=== PATIENT | female | born 1960 | race Caucasian/White ===

== ENCOUNTER 2022-04-06 16:36 | Outpatient (CLI) | payer OTHER, SELFPAY ==
[2022-04-06 11:37] LABS: Hemoglobin A1C 5.1 % (<5.7)
[2022-04-06 12:20] LABS: Glucose 102 mg/dL (74-106)
== END 2022-04-06 16:37 | disposition home or self-care (01) ==
LOC: LBO 16:40
PROVIDERS: PCP Internal Medicine; Visit Provider Optometrist
DX: E11.9 Type 2 diabetes mellitus without complications (principal)
CPT/HCPCS: 36415; 82947; 83036

== ENCOUNTER 2022-12-13 08:48 | Day surgery (SDC) | payer OTHER, SELFPAY ==
[2022-12-13 08:50] VITALS: BP 138/90; PULSE 86; RESP 16; TEMP 35.9; O2SAT 96
--- NOTE | 2022-12-13 09:13 | W.ANESPRE ---
General Info Date of Service Date Performed: 12/13/22 Height: 5 ft 7 in Weight: 91.8 kg Body Mass Index (BMI): 31.6 Surgical Procedure: Operation Date: 12/13/22 11:40 Proposed Procedure Side Surgeon p Cataract Extraction with IOL Implant Left jT Reynolds MD laterality changed after discussion with surgeon, all paperwork and patient agree to left eye Meds Allergies and Home Medications Allergies Allergy/AdvReac Type Severity Reaction Status Date / Time lisinopril Allergy Severe Angioedema Unverified 12/13/22 09:05 amoxicillin [Amoxicillin] Allergy Mild Hives Unverified 12/13/22 09:05 Sulfa (Sulfonamide Allergy Mild Skin Rash Unverified 12/13/22 09:05 Antibiotics) Home Medication Medication Instructions Recorded cyanocobalamin (vitamin B-12) 1,000 mcg IM .MONTHLY 12/03/13 1,000 mcg/mL oral drops (Vitamin B-12) metoprolol tartrate 100 mg tablet 150 mg PO TID 12/03/13 venlafaxine 75 mg tablet 75 mg PO BID 12/03/13 albuterol sulfate 90 mcg/actuation 2 puff inhalation QID PRN 12/09/22 aerosol inhaler (Ventolin HFA) amlodipine 5 mg tablet 5 mg PO DIRECTED 12/09/22 apixaban 5 mg tablet (Eliquis) 5 mg PO BID 12/09/22 fluticasone propionate 110 2 puff inhalation BID 12/09/22 mcg/actuation HFA aerosol inhaler (Flovent HFA) losartan 100 mg tablet 100 mg PO QAM 12/09/22 losartan 50 mg tablet 50 mg PO HS 12/09/22 omeprazole 40 mg capsule,delayed 40 mg PO BID 12/09/22 release potassium chloride 10 mEq 10 meq PO BID 12/09/22 capsule,extended release budesonide-formoterol HFA 160 2 puff inhalation BID 12/10/22 mcg-4.5 mcg/actuation aerosol inhaler (Symbicort) Current Visit Medications: Current Medications Generic Name Dose Route Start Last Admin Trade Name Freq PRN Reason Stop Dose Admin Acetaminophen 1,000 mg 12/13/22 06:00 Acetaminophen 500 Mg Tab PO Q4H PRN PRN Miscellaneous Medication 0 ml 12/13/22 06:00 Tropicam./Phenyleph. (1/2.5%) 10 Ml Btl OD DIRECTED [facility] Miscellaneous Medication 0 ml 12/13/22 06:00 Prednisolone 1%, Moxifloxacin 0.5%, Nepafenac 0.1% 5ml Btl OD DIRECTED [facility] Tetracaine HCl 0 ml 12/13/22 06:00 Tetracaine 0.5% 4 Ml Btl OD DIRECTED [facility] PFSH Active Problems Active Problems: Problem Status Onset Code Generalized abdominal discomfort 12/03/13 R10.84 Nausea and vomiting 12/03/13 R11.2 History of DVT (deep vein thrombosis) Z86.718 Hypertension I10 Depression F32.9 Small bowel obstruction 12/13/13 K56.69 Medical History Medical History Cardiac pacemaker in situ Chest pain neg stress echo04/2011 Endometriosis History of cardioversion F/U with cards annually ILD (interstitial lung disease) Mild intermittent asthma Ocular migraine MONIKA (obstructive sleep apnea) Parastomal hernia Pulmonary embolism x3 on continuous anticoagulation Tachy-kade syndrome Unspecified atrial fibrillation During D&C developed brief run of a-fib, tolerated general anesthesia well. Surgical History Surgical History H/O cardiac radiofrequency ablation History of hernia repair parastomal hernia S/P colectomy Status post ileostomy Tobacco Smoking/Tobacco Use Status: Never Alcohol Alcohol Intake: never Substance Use Substance use: Never Substance use type: does not use Vital Signs and Lab Results Vital Signs Most Recent Vital Signs in EMR: Temp Pulse Resp BP Pulse Ox 35.9 C L 86 16 138/90 96 12/13/22 08:50 12/13/22 08:50 12/13/22 08:50 12/13/22 08:50 12/13/22 08:50 Lab Results Blood Type / Crossmatch: No Data to Display Complete Blood Count: No Data to Display Complete Metabolic Panel: No Data to Display Liver Function Panel: No Data to Display Coagulation Panel: No Data to Display Cardiac Panel: No Data to Display Arterial Blood Gas: No Data to Display Venous Blood Gas: No Data to Display Pancreas Panel: No Data to Display Thyroid Panel: No Data to Display Infectious Disease: No Data to Display Blood Cultures: No Data to Display Toxicology Panel: No Data to Display Imaging and Studies Imaging and Studies Study information below may be from another EMR and interpreted by another provider. Please see original notes in EMR for more complete details. [place] [facility] [place] [facility] [place] Summary: [place]19[place]21 [place] [facility] [place] [facility] [place] 68% no significant valve disease Anesthesia Assessment and Plan Anesthesia History Personal History: No History of Anesthesia Complications Family History: No Family History of Anesthesia Complications Exercise Tolerance Exercise Tolerance: Metabolic Equivalents<4 Pertinent Negatives Pertinent Negatives: No Symptoms of GERD, No Major Cardiovascular Symptoms or Complaints and Other (chronic SOB being worked up, stress test and echo negative) Cardiac & Pulmonary Exam Cardiac Exam: Normal S1/S2 Heart Sounds Pulmonary Exam: Clear Bilateral Breath Sounds Implantable Cardiac Device Does patient have a Pacemaker or an ICD?: Yes Device 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[employer] Accolade MRI L311 Reason for Placement:: Afib & Tachy-kade syndrome Date of Last Device Interrogation:: 11/16/22 Airway Exam Known Difficult Airway: No Mallampati Class: 4 Mouth Opening: Normal (> 3cm) Thyromental Distance: Less than 3 cm Neck Range of Motion: Full ROM Neck Circumference: Thick Teeth Condition: Normal Dentition ASA Classification ASA Score: ASA 3 Emergency Case?: No NPO Status NPO Status: NPO Clears >2 hours, Solids >8 hours Anesthesia Plan Resuscitation Status: Full Code Anesthesia Technique: MAC Anesthesia Airway Planned: Natural Airway Monitors Used: Standard Monitors
[2022-12-13 09:25] VITALS: BMI 31.6
[2022-12-13] MEDS: Tetracaine 0.5% 4 ML BTL OD (10:22)
[2022-12-13] MEDS: Duovisc Viscoelastic System EACH 1 EACH (10:23)
[2022-12-13] MEDS: Lidocaine 1% Pres-Free 5 ML VIAL (10:23)
[2022-12-13] MEDS: Balanced Salt Soln.-PLUS 500 ML BAG (10:23)
[2022-12-13] MEDS: Phenylephrine/Lidocaine (15/10) MG/ML 1 ML VIAL (10:24)
[2022-12-13] MEDS: Trypan Blue 0.06% 0.5 ML SYR (10:25)
[2022-12-13] MEDS: Povidone-Iodine Ophth 30 ML BTL (10:25)
--- NOTE | 2022-12-13 10:49 | W.PM.DSUDISC ---
Date of service: 12/13/22 Time of Service: 10:49 Discharge Plan Disposition Patient Disposition: Home Discharge Details Attending Provider: Tj Reynolds Primary Care Provider: Amairani Dozier Home Meds and New Rx's Prescriptions: No Action venlafaxine 75 MG tablet 75 mg PO BID metoprolol tartrate 100 MG tablet 150 mg PO TID Vitamin B-12 1,000 MCG/ML drops 1,000 mcg IM .MONTHLY losartan 50 mg Tablet 50 mg PO HS potassium chloride 10 mEq Capsule, Extended Release 10 meq PO BID amlodipine 5 mg tablet 5 mg PO DIRECTED omeprazole 40 mg Capsule,Delayed Release(Dr/Ec) 40 mg PO BID albuterol sulfate [Ventolin HFA] 90 mcg/actuation Hfa Aerosol Inhaler 2 puff INHALATION QID PRN losartan 100 mg tablet 100 mg PO QAM fluticasone propionate [Flovent HFA] 110 mcg/actuation Hfa Aerosol Inhaler 2 puff INHALATION BID Eliquis 5 mg Tablet 5 mg PO BID budesonide-formoterol [Symbicort] 160-4.5 mcg/actuation Hfa Aerosol Inhaler 2 puff INHALATION BID Discharge Instructions Stand Alone Forms: Post-op Topical Cataract, Martha Villarreal ([facility]U) Discharge Orders Discharge Orders: Discharge Order (Routine); Ordered 12/13/22 Ordered By: Tj Reynolds DS: Diagnosis Discharge Diagnosis (1) Posterior subcapsular age-related cataract of left eye: Status: Resolved (2) Nuclear age-related cataract, left eye: Status: Resolved
[2022-12-13 10:50] VITALS: BP 113/74; PULSE 61; RESP 16; TEMP 36.1; O2SAT 98
--- NOTE | 2022-12-13 10:50 | W.PM.OP ---
Date of service: 12/13/22 Time of Service: 10:50 Operative Note Operative Note DATE OF PROCEDURE: 12/13/22 PRE-OP DIAGNOSIS: Nuclear/posterior subcapsular cataract, left eye POST-OP DIAGNOSIS: same PROCEDURE: Cataract extraction using phacoemulsification with intraocular lens implant, left eye SURGEON: Tj Reynolds ANESTHESIA TYPE: Local By Surgeon and MAC Refer to Anesthesia Record PATHOLOGY: none sent COMPLICATIONS: None Patient was transported to: same day Patient's condition: stable Implants: Kvng and Kvng Tecnis Eyhance [id number] Indications: Progressive decreased vision due to cataract, left eye Procedure Description: CATARACT SURGERY OPERATIVE REPORT PREOPERATIVE DIAGNOSIS: 1. Nuclear/posterior subcapsular cataract, left eye POSTOPERATIVE DIAGNOSIS: Same OPERATION: 1. Cataract extraction using phacoemulsification with posterior chamber intraocular lens implant, left eye. IOL: IOL Geodetic Surveyor Technologist/Model: Kvng & Kvng Tecnis Eyhance DIB00 IOL Power: + 22.0 diopters IOL Serial Number: [id number] Optic Diameter: 6.0 mm Haptic/Overall Diameter: 13.0 mm PHACO INFO: Buck [employer] (L[employer]urion Vision System with OZil and Active Fluidics Cumulative Dispersed Energy (CDE): 4.11 seconds SURGEON: Tj Reynolds MD, LYLE ANESTHESIA: Monitored [facility] (MAC), with local sub-tenon's anesthetic infiltration COMPLICATIONS: None SPECIMENS: None INDICATIONS FOR PROCEDURE: The patient is a 62-year-old lady with history of diminished visual acuity in both eyes secondary to the development of bilateral nuclear/posterior subcapsular cataract. She is significantly symptomatic that she desires cataract surgery and attempt to improve and maximize her vision. PROCEDURE: The correct surgical eye was identified and marked as the left eye and the pupil was dilated in the preoperative area using mydriatics and cycloplegics. The dilated pupil size was 5.0 mm. Oral sedation was administered in the form of an Imprimis MKO Melt (midazolam 3mg/ketamine 25mg/ondansetron 2mg). . The patient was brought to the operating room where cardiopulmonary monitoring was instituted and surgical time-out was performed, confirming the correct operative eye and IOL power. Topical anesthesia was administered and ophthalmic povidone-iodine 5% was instilled into the conjunctival fornices. Lidocaine gel was applied to the cornea and the dalton-ocular area was prepped with Betadine 10% solution and draped in the usual sterile fashion for intraocular surgery, including an aperture drape. A Tegaderm transparent film dressing was cut in half and used to cover the lashes and lid margins. Care was taken to sequester the lashes and lid margins under the Tegaderm dressing. A lid speculum was placed between the lids of the operative eye and the Buck LuxOR Revalia operating microscope was maneuvered into position. Jose scissors were then used to make a conjunctival buttonhole approximately 6mm posterior to the limbus in the inferonasal quadrant. Blunt dissection was carried out to expose bare sclera, and a blunt-tipped sub-tenon?s anesthesia cannula was introduced and passed posteriorly along the globe where non-preserved plain lidocaine was injected into posterior sub-Tenon?s space. A sideport knife was used to make a paracentesis port superiorly/superiortemporally. Intraocular phenylephrine/lidocaine was injected int the anterior chamber. VisionBlue was injected into the anterior chamber and allowed to sit for 12 to 15 seconds, and then irrigated out with balanced salt solution. The anterior chamber was filled with viscoelastic. Viscoat was used to provide a little extra Visco dilation, to approximately 5.5 mm A keratome knife was used to construct a 2-plane near-clear corneal tunnel extending 2.0mm into clear cornea temporally. A flap was raised on the anterior capsule and capsulorhexis forceps were used to complete a continuous curvilinear capsulorhexis of 5.0 mm. Balanced salt solution was then used to perform cortical cleaving hydrodissection and nuclear hydrodelineation until the lens could be freely rotated within the capsular bag. The lens nucleus was then disassembled and removed within the capsular bag and iris plane using phacoemulsification. Residual cortical material was removed using the 45-degree angled silicone I/A tip with 0.3mm port. The posterior capsule was carefully polished to remove as much residual lens epithelial cells as safely possible. The capsular bag was then inflated and the anterior chamber deepened with viscoelastic. The lens implant described above was inserted into the capsular bag using the Kvng and Kvng Simplicity pre-loaded injector. . A Kuglen hook was used to dial the IOL into position. Residual viscoelastic was then removed first from posterior to the IOL, then from the anterior chamber using the I/A handpiece. The lens implant was noted to center nicely within the capsular bag. The incisions were stromally hydrated, and the anterior chamber was reformed using BSS. Then 0.5cc of moxifloxacin 1.0mg/ml were injected into the capsular bag and anterior chamber. The incisions were checked with a Weck spear and found to be secure. Several drops of ophthalmic povidone-iodine 5% were then applied to the eye followed by two drops of Imprimis combination prednisolone/moxifloxacin/nepafenac solution. The drapes were removed and a clear plastic protective eye shield was placed over the eye. The patient was then returned to Same Day Surgery in stable condition.
--- NOTE | 2022-12-13 11:02 | W.ANESPOSTOP ---
Postoperative Evaluation Date, Time and Location Date Performed: 12/13/22 Time Performed: 10:55 Patient Location: Day Surgery Unit Vital Signs Most Recent Imported Vital Signs: Most Recent Vital Signs Temp Pulse Resp BP Pulse Ox 36.1 C L 61 16 113/74 98 12/13/22 10:50 12/13/22 10:50 12/13/22 10:50 12/13/22 10:50 12/13/22 10:50 Pain Score Most Recent Pain Score: Most Recent Pain Score Pain Level 0 12/13/22 10:50 Assessment Mental Status: Awake (Alert & Oriented to Patient Baseline) Airway and Respiratory Function: Patent airway with normal (patient baseline) respiratory exam Cardiovascular Function: Hemodynamically Stable Hydration Status: Adequately Hydrated Nausea & Vomiting: No Nausea or Vomiting Pain: Pt. Denies Any Pain Peripheral Nerve Block: Patient did not receive a nerve block
[2022-12-13 11:18] VITALS: BP 114/79; PULSE 65; RESP 16; TEMP 36.5; O2SAT 96
== END 2022-12-13 11:24 | disposition home or self-care (01) ==
PROVIDERS: PCP Internal Medicine; Visit Provider Ophthalmology
PROC: (CPT 66984; principal; 2022-12-13 11:30)
DX: H25.042 Posterior subcapsular polar age-related cataract, left eye (principal); H25.12 Age-related nuclear cataract, left eye
CPT/HCPCS: 66984; V2632

== ENCOUNTER 2022-12-27 08:12 | Day surgery (SDC) | payer OTHER, SELFPAY ==
--- NOTE | 2022-12-27 06:42 | W.ANESPRE ---
General Info Date of Service Date Performed: 12/27/22 Height: 5 ft 7 in Weight: 91.8 kg Body Mass Index (BMI): 31.6 Surgical Procedure: Operation Date: 12/27/22 10:40 Proposed Procedure Side Surgeon p Cataract Extraction with IOL Implant Right Tj Reynolds MD Meds Allergies and Home Medications Allergies Allergy/AdvReac Type Severity Reaction Status Date / Time lisinopril Allergy Severe Angioedema Unverified 12/27/22 08:42 amoxicillin [Amoxicillin] Allergy Mild Hives Unverified 12/27/22 08:42 Sulfa (Sulfonamide Allergy Mild Skin Rash Unverified 12/27/22 08:42 Antibiotics) Home Medication Medication Instructions Recorded cyanocobalamin (vitamin B-12) 1,000 mcg IM .MONTHLY 12/03/13 1,000 mcg/mL oral drops (Vitamin B-12) metoprolol tartrate 100 mg tablet 150 mg PO TID 12/03/13 venlafaxine 75 mg tablet 75 mg PO BID 12/03/13 albuterol sulfate 90 mcg/actuation 2 puff inhalation QID PRN 12/09/22 aerosol inhaler (Ventolin HFA) amlodipine 5 mg tablet 5 mg PO DIRECTED 12/09/22 apixaban 5 mg tablet (Eliquis) 5 mg PO BID 12/09/22 fluticasone propionate 110 2 puff inhalation BID 12/09/22 mcg/actuation HFA aerosol inhaler (Flovent HFA) losartan 100 mg tablet 100 mg PO QAM 12/09/22 losartan 50 mg tablet 50 mg PO HS 12/09/22 omeprazole 40 mg capsule,delayed 40 mg PO BID 12/09/22 release potassium chloride 10 mEq 10 meq PO BID 12/09/22 capsule,extended release budesonide-formoterol HFA 160 2 puff inhalation BID 12/10/22 mcg-4.5 mcg/actuation aerosol inhaler (Symbicort) Current Visit Medications: Current Medications Generic Name Dose Route Start Last Admin Trade Name Freq PRN Reason Stop Dose Admin Acetaminophen 1,000 mg 12/27/22 06:00 Acetaminophen 500 Mg Tab PO Q4H PRN PRN Miscellaneous Medication 0 ml 12/27/22 06:00 Tropicam./Phenyleph. (1/2.5%) 5 Ml Btl OD DIRECTED [facility] Miscellaneous Medication 0 ml 12/27/22 06:00 Prednisolone 1%, Moxifloxacin 0.5%, Nepafenac 0.1% 5ml Btl OD DIRECTED [facility] Tetracaine HCl 0 ml 12/27/22 06:00 Tetracaine 0.5% 4 Ml Btl OD DIRECTED [facility] PFSH Active Problems Active Problems: Problem Status Onset Code Posterior subcapsular age-related cataract, right eye H25.041 Nuclear age-related cataract, right eye H25.11 Posterior subcapsular age-related cataract of left eye H25.042 Nuclear age-related cataract, left eye H25.12 Generalized abdominal discomfort 12/03/13 R10.84 Nausea and vomiting 12/03/13 R11.2 History of DVT (deep vein thrombosis) Z86.718 Hypertension I10 Depression F32.9 Small bowel obstruction 12/13/13 K56.69 Medical History Medical History Cardiac pacemaker in situ Chest pain neg stress echo04/2011 Endometriosis History of cardioversion F/U with cards annually ILD (interstitial lung disease) Mild intermittent asthma Ocular migraine MONIKA (obstructive sleep apnea) Parastomal hernia Pulmonary embolism x3 on continuous anticoagulation Tachy-kade syndrome Unspecified atrial fibrillation During D&C developed brief run of a-fib, tolerated general anesthesia well. Surgical History Surgical History H/O cardiac radiofrequency ablation History of hernia repair parastomal hernia S/P colectomy Status post ileostomy Tobacco Smoking/Tobacco Use Status: Never Alcohol Alcohol Intake: never Substance Use Substance use: Never Substance use type: does not use Vital Signs and Lab Results Vital Signs Most Recent Vital Signs in EMR: Temp Pulse Resp BP Pulse Ox 36.3 C L 60 17 102/71 96 12/27/22 08:25 12/27/22 08:25 12/27/22 08:25 12/27/22 08:25 12/27/22 08:25 Lab Results Blood Type / Crossmatch: No Data to Display Complete Blood Count: No Data to Display Complete Metabolic Panel: No Data to Display Liver Function Panel: No Data to Display Coagulation Panel: No Data to Display Cardiac Panel: No Data to Display Arterial Blood Gas: No Data to Display Venous Blood Gas: No Data to Display Pancreas Panel: No Data to Display Thyroid Panel: No Data to Display Infectious Disease: No Data to Display Blood Cultures: No Data to Display Toxicology Panel: No Data to Display Imaging and Studies Imaging and Studies Study information below may be from another EMR and interpreted by another provider. Please see original notes in EMR for more complete details. Stress Test Summary: 10/27/21 at [facility] [place] for [place] Echocardiogram Summary: 03/19/21 at [facility] [place] EF 68% no significant valve disease Anesthesia Assessment and Plan Anesthesia History Personal History: No History of Anesthesia Complications Family History: No Family History of Anesthesia Complications Exercise Tolerance Exercise Tolerance: Metabolic Equivalents>4 Cardiac & Pulmonary Exam Cardiac Exam: Normal S1/S2 Heart Sounds Pulmonary Exam: Clear Bilateral Breath Sounds Implantable Cardiac Device Does patient have a Pacemaker or an ICD?: Yes 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 Airway Exam Known Difficult Airway: No Mallampati Class: 4 Mouth Opening: Normal (> 3cm) Thyromental Distance: Less than 3 cm Neck Range of Motion: Full ROM Neck Circumference: Thick Teeth Condition: Normal Dentition ASA Classification ASA Score: ASA 3 Emergency Case?: No NPO Status NPO Status: NPO Clears >2 hours, Solids >8 hours Anesthesia Plan Resuscitation Status: Full Code Anesthesia Technique: MAC Anesthesia Airway Planned: Natural Airway Monitors Used: Standard Monitors Preoperative Comments:: 62 yo female for repeat cataract removal. did have MKO. would like MKO again. Sig PMHx: DVT/PE (apixban), HTN (amlodipine, losartan, metoprolol), depression, anxiety, pacer/tachy kade, ILD/asthma, GERD (omeprazole), never smoker.
[2022-12-27 08:25] VITALS: BP 102/71; PULSE 60; RESP 17; TEMP 36.3; O2SAT 96
[2022-12-27 08:31] VITALS: BMI 31.6
[2022-12-27] MEDS: Tropicam./Phenyleph. (1/2.5%) 5 ML BTL OD ×3 (08:46→08:56)
[2022-12-27] MEDS: Tetracaine 0.5% 4 ML BTL OD (09:24)
[2022-12-27] MEDS: Balanced Salt Soln.-PLUS 500 ML BAG (09:25)
[2022-12-27] MEDS: Lidocaine 1% Pres-Free 5 ML VIAL (09:25)
[2022-12-27] MEDS: Duovisc Viscoelastic System EACH 1 EACH (09:25)
[2022-12-27] MEDS: Povidone-Iodine Ophth 30 ML BTL (09:26)
[2022-12-27] MEDS: Phenylephrine/Lidocaine (15/10) MG/ML 1 ML VIAL (09:26)
[2022-12-27] MEDS: Trypan Blue 0.06% 0.5 ML SYR (09:27)
[2022-12-27 09:43] VITALS: BP 102/66; PULSE 60; RESP 16; TEMP 36.5; O2SAT 98
--- NOTE | 2022-12-27 09:45 | ROE_ITS ---
Date of service: 12/27/22 Time of Service: 09:45 Operative Note Operative Note DATE OF PROCEDURE: 12/27/22 PRE-OP DIAGNOSIS: Nuclear/posterior subcapsular cataract, right eye POST-OP DIAGNOSIS: same PROCEDURE: Cataract extraction using phacoemulsification with intraocular lens implant, right eye SURGEON: Tj Reynolds ANESTHESIA TYPE: Local By Surgeon and MAC Refer to Anesthesia Record ESTIMATED BLOOD LOSS: 0 PATHOLOGY: none sent COMPLICATIONS: None Patient was transported to: same day Patient's condition: stable Implants: Kvng & Kvng Tecnis Eyhance [id number] Indications: Progressive visual loss due to cataract, right eye Procedure Description: CATARACT SURGERY OPERATIVE REPORT PREOPERATIVE DIAGNOSIS: 1. Nuclear/posterior subcapsular cataract, right eye POSTOPERATIVE DIAGNOSIS: Same OPERATION: 1. Cataract extraction using phacoemulsification with posterior chamber intraocular lens implant, right eye. IOL: IOL Payroll Benefits Administrator/Model: Kvng & Knvg Tecnis Eyhance DIB00 IOL Power: + 21.5 diopters IOL Serial Number: [id number] Optic Diameter: 6.0mm Haptic/Overall Diameter: 13.0mm PHACO INFO: Buck LinPrimurion Vision System with OZil and Active Fluidics Cumulative Dispersed Energy (CDE): 5.0 seconds SURGEON: Tj Reynolds MD, LYLE ANESTHESIA: Monitored Anesthesia Care (MAC), with local sub-tenon's anesthetic infiltration COMPLICATIONS: None SPECIMENS: None INDICATIONS FOR PROCEDURE: The patient is a 62-year-old lady with history of diminished visual acuity in both eyes secondary to the development of bilateral nuclear/posterior subcapsular cataract. She has already undergone cataract surgery in the left eye and is doing well postoperatively. She now presents for cataract surgery in the right eye. PROCEDURE: The correct surgical eye was identified and marked as the right eye and the pupil was dilated in the preoperative area using mydriatics and cycloplegics. The dilated pupil size was 5.0 mm. Oral sedation was administered in the form of an Imprimis MKO Melt (midazolam 3mg/ketamine 25mg/ondansetron 2mg). The patient was brought to the operating room where cardiopulmonary monitoring was instituted and surgical time-out was performed, confirming the correct operative eye and IOL power. Topical anesthesia was administered and ophthalmic povidone-iodine 5% was instilled into the conjunctival fornices. Lidocaine gel was applied to the cornea and the dalton-ocular area was prepped with Betadine 10% solution and draped in the usual sterile fashion for intraocular surgery, including an aperture drape. A Tegaderm transparent film dressing was cut in half and used to cover the lashes and lid margins. Care was taken to sequester the lashes and lid margins under the Tegaderm dressing. A lid speculum was placed between the lids of the operative eye and the Buck LuxOR Revalia operating microscope was maneuvered into position. Jose scissors were then used to make a conjunctival buttonhole approximately 6mm posterior to the limbus in the inferonasal quadrant. Blunt dissection was carried out to expose bare sclera, and a blunt-tipped sub-tenon?s anesthesia cannula was introduced and passed posteriorly along the globe where non- preserved plain lidocaine was injected into posterior sub-Tenon?s space. A sideport knife was used to make a paracentesis port inferotemporally. VisionBlue was injected into the anterior chamber and allowed to sit for 12 to 15 seconds. Intraocular phenylephrine/lidocaine was injected into the anterior chamber. The anterior chamber was filled with viscoelastic. A keratome knife was used to construct a 2-plane near-clear corneal tunnel extending 2.0mm into clear cornea superiortemporally. A flap was raised on the anterior capsule and capsulorhexis forceps were used to complete a continuous curvilinear capsulorhexis of 5.0 mm. Balanced salt solution was then used to perform cortical cleaving hydrodissection and nuclear hydrodelineation until the lens could be freely rotated within the capsular bag. The lens nucleus was then disassembled and removed within the capsular bag and iris plane using phacoemulsification. Residual cortical material was removed using the I/A handpiece. The posterior capsule was carefully polished to remove as much residual lens epithelial cells as safely possible. The capsular bag was then inflated and the anterior chamber deepened with viscoelastic. The lens implant described above was inserted into the capsular bag using the Vkng and Anders Simplicity pre-loaded injector. A Kuglen hook was used to dial the IOL into position. Residual viscoelastic was then removed first from posterior to the IOL, then from the anterior chamber using the I/A handpiece. The lens implant was noted to center nicely within the capsular bag. The incisions were stromally hydrated, and the anterior chamber was reformed using BSS. Then 0.5cc of moxifloxacin 1.0mg/ml were injected into the capsular bag and anterior chamber. The incisions were checked with a Weck spear and found to be secure. Several drops of ophthalmic povidone-iodine 5% were then applied to the eye followed by two drops of Imprimis combination prednisolone/moxifloxacin/nepafenac solution. The drapes were removed and a clear plastic protective eye shield was placed over the eye. The patient was then returned to [facility] Day Surgery in stable condition.
--- NOTE | 2022-12-27 09:45 | W.PM.DSUDISC ---
Date of service: 12/27/22 Time of Service: 09:45 Discharge Plan Disposition Patient Disposition: Home Discharge Details Attending Provider: Tj Reynolds Primary Care Provider: Amairani Dozier Home Meds and New Rx's Prescriptions: No Action venlafaxine 75 MG tablet 75 mg PO BID metoprolol tartrate 100 MG tablet 100 mg PO TID Vitamin B-12 1,000 MCG/ML drops 1,000 mcg IM .MONTHLY losartan 50 mg Tablet 50 mg PO HS potassium chloride 10 mEq Capsule, Extended Release 10 meq PO BID amlodipine 5 mg tablet 5 mg PO DIRECTED Rx Instructions: 2.5mg HS, 5mg AM omeprazole 40 mg Capsule,Delayed Release(Dr/Ec) 40 mg PO BID albuterol sulfate [Ventolin HFA] 90 mcg/actuation Hfa Aerosol Inhaler 2 puff INHALATION QID PRN losartan 100 mg tablet 100 mg PO QAM fluticasone propionate [Flovent HFA] 110 mcg/actuation Hfa Aerosol Inhaler 2 puff INHALATION BID Eliquis 5 mg Tablet 5 mg PO BID budesonide-formoterol [Symbicort] 160-4.5 mcg/actuation Hfa Aerosol Inhaler 2 puff INHALATION BID Discharge Instructions Stand Alone Forms: Post-op Topical CataractMartha (DSU) Discharge Orders Discharge Orders: Discharge Order (Routine); Ordered 12/27/22 Ordered By: Tj Reynolds DS: Diagnosis Discharge Diagnosis (1) Posterior subcapsular age-related cataract, right eye: Status: Resolved (2) Nuclear age-related cataract, right eye: Status: Resolved
--- NOTE | 2022-12-27 09:46 | W.ANESPOSTOP ---
Postoperative Evaluation Date, Time and Location Date Performed: 12/27/22 Time Performed: 09:46 Patient Location: Day Surgery Unit Vital Signs Most Recent Imported Vital Signs: Most Recent Vital Signs Temp Pulse Resp BP Pulse Ox 36.3 C L 60 17 102/71 96 12/27/22 08:25 12/27/22 08:25 12/27/22 08:25 12/27/22 08:25 12/27/22 08:25 Pain Score Most Recent Pain Score: Most Recent Pain Score Pain Level 0 12/27/22 08:25 Assessment Mental Status: Awake (Alert & Oriented to Patient Baseline) Airway and Respiratory Function: Patent airway with normal (patient baseline) respiratory exam Cardiovascular Function: Hemodynamically Stable Hydration Status: Adequately Hydrated Nausea & Vomiting: No Nausea or Vomiting Pain: Pt. Denies Any Pain Peripheral Nerve Block: Other (Local by Dr. Reynolds)
[2022-12-27 10:10] VITALS: BP 108/69; PULSE 60; RESP 18; TEMP 36.4; O2SAT 97
== END 2022-12-27 10:16 | disposition home or self-care (01) ==
LOC: SUR 08:12
PROVIDERS: PCP Internal Medicine; Visit Provider Ophthalmology
PROC: (CPT 66984; principal; 2022-12-27 10:30)
DX: H25.041 Posterior subcapsular polar age-related cataract, right eye (principal); H25.11 Age-related nuclear cataract, right eye; I10 Essential (primary) hypertension; Z86.718 Personal history of other venous thrombosis and embolism; Z98.42 Cataract extraction status, left eye
CPT/HCPCS: 66984; V2632

== ENCOUNTER 2023-03-23 02:37 | Outpatient (CLI) | payer OTHER, SELFPAY ==
[2023-03-23 08:23] LABS: Hemoglobin A1C 5.1 % (<5.7)
[2023-03-23 09:16] LABS: Vitamin D 25 Total 56.3 ng/mL (30-100)
[2023-03-23 09:20] LABS: Calculated LDL 126 mg/dL (<100); Cholesterol 276 mg/dL (<200); Glucose 86 mg/dL (74-106); HDL Cholesterol 73 mg/dL (40-60); TSH 1.26 uIU/mL (0.36-3.74); Triglyceride 388 mg/dL (<150); Vitamin B12 395 pg/mL (193-986)
[2023-04-04 13:07] LABS: Insulin, Free 9 uIU/mL (3-25)
[2023-04-04 13:12] LABS: Insulin, Total 10 uIU/mL (3-25)
== END 2023-03-23 02:38 | disposition home or self-care (01) ==
LOC: LBO 02:37
PROVIDERS: PCP Internal Medicine; Visit Provider Surgery
DX: E66.01 Morbid (severe) obesity due to excess calories (principal); Z68.41 Body mass index [BMI] 40.0-44.9, adult
CPT/HCPCS: 36415; 80061; 82306; 82947; 83525; 83527; 82607; 83036; 84443

== ENCOUNTER 2023-04-11 13:39 | Emergency (ER) | payer OTHER, SELFPAY ==
--- NOTE | 2023-04-11 13:45 | DI.RAD_ITS ---
Exam(s) XR ANKLE LT COMPLETE EXAM: XR ANKLE LT COMPLETE CLINICAL HISTORY: rotational injury TECHNIQUE: 2D digital imaging was performed. Three views. COMPARISON: No exams were available for comparison FINDINGS: BONES: No acute fracture is present. No bony destructive lesion is seen. JOINTS:The ankle mortise is normally aligned. SOFT TISSUE: Marked soft tissue swelling. IMPRESSION: No acute bony abnormality. DATA REPOSITORY: RADIATION DOSE DELIVERED:
--- NOTE | 2023-04-11 13:45 | DI.RAD_ITS ---
Exam(s) XR FOOT LT COMPLETE EXAM: XR FOOT LT COMPLETE CLINICAL HISTORY: rotational injury, prox 5th pain. TECHNIQUE: 2D digital imaging was performed. Three views. COMPARISON: No exams were available for comparison FINDINGS: BONES: No acute fracture is present. No bony destructive lesion is seen. JOINTS: No dislocation present. SOFT TISSUE: Swelling greatest around the ankle and dorsum of foot. IMPRESSION: Soft tissue swelling. DATA REPOSITORY: RADIATION DOSE DELIVERED:
[2023-04-11 13:47] VITALS: BP 124/74; PULSE 80; RESP 18; TEMP 36.8
--- NOTE | 2023-04-11 13:59 | ED.GENADUL_ITS ---
Discharge Plan Disposition Patient Disposition: Home Condition: Good Discharge Details Clinical Impression: Ankle sprain, Acute foot pain Primary Care Provider: Amairani Dozier ED Provider: Alessia Loya Home Meds and New Rx's Prescriptions: Continued venlafaxine 75 MG tablet 75 mg PO BID metoprolol tartrate 100 MG tablet 100 mg PO TID Vitamin B-12 1,000 MCG/ML drops 1,000 mcg IM .MONTHLY losartan 50 mg Tablet 50 mg PO HS potassium chloride 10 mEq Capsule, Extended Release 10 meq PO BID amlodipine 5 mg tablet 5 mg PO DIRECTED Rx Instructions: 2.5mg HS, 5mg AM omeprazole 40 mg Capsule,Delayed Release(Dr/Ec) 40 mg PO BID albuterol sulfate [Ventolin HFA] 90 mcg/actuation Hfa Aerosol Inhaler 2 puff INHALATION QID PRN losartan 100 mg tablet 100 mg PO QAM fluticasone propionate [Flovent HFA] 110 mcg/actuation Hfa Aerosol Inhaler 2 puff INHALATION BID Eliquis 5 mg Tablet 5 mg PO BID budesonide-formoterol [Symbicort] 160-4.5 mcg/actuation Hfa Aerosol Inhaler 2 puff INHALATION BID Saxenda 3 mg/0.5 mL (18 mg/3 mL) Pen Injector 3 mg SUBCUT DAILY Discharge Instructions Instructions: Ankle Sprain (ED) Additional Instructions: Your xrays are reassuring here today. I am concerned for a bad sprain. Please continue with brace. Encourage rest, ice, elevation. Tylenol for discomfort. Crutches to help with support. If you develop increased pain or other new/worsening symptoms please seek care urgently once again. Please follow up with primary care in 2 weeks for reevaluation. Referrals: Amairani Dozier [Primary Care Provider] - Discharge Data Discharge Date/Time-TO BE ENTERED AT DEPARTURE: 04/11/23 16:07 Medical Decision Making Patient is a pleasant 62-year-old female, accompanied by significant other, with chief complaint of left ankle pain. Reports that yesterday she stood up too quickly and slippery socks and suffered a rotational injury with sudden onset of lateral ankle pain. This does radiate into the foot. She denies other injury at time of the incident. No sensory changes. Has had an Achilles repair on the ipsilateral side no previous fractures. On exam, patient appears uncomfortable with movement. She has notable swelling and ecchymosis to the lateral malleolus extending onto the lateral foot. She is point tender over the fifth metatarsal. She has intact distal pulses. Intact capillary refill. Good range of motion. No pain over the proximal fibula. Point tender over the lateral malleolus and ATFL. No midfoot pain. Concern for potential fracture. She has been using acetaminophen to help with discomfort. Patient is anticoagulated for history of DVT. FINDINGS: BONES: No acute fracture is present. No bony destructive lesion is seen. JOINTS:The ankle mortise is normally aligned. SOFT TISSUE: Marked soft tissue swelling. IMPRESSION: No acute bony abnormality FINDINGS: BONES: No acute fracture is present. No bony destructive lesion is seen. JOINTS: No dislocation present. SOFT TISSUE: Swelling greatest around the ankle and dorsum of foot.? IMPRESSION: Soft tissue swelling. Discussed iwth patient. Advised sprain and swelling/ecchymosis. Advised short boot to help with swelling and support as patient is struggling with ambulation. Encouraged RICE. Advised f/u with PCP in one week. She will try crutches vs. walker for further support once boot in place. Discussed pain management. Return precautions discussed. All of her questions/concerns were addressed, she is in agreement with this plan. Patient did best with walker for ambulation. HPI General Date/Time Provider Initiated Documentation: 04/11/23 13:40 . Limitations to Documentation: no limitations . Information obtained by: patient, family and RN notes reviewed . History of Present Illness 62 year old F presents to the emergency department with the chief complaint of left ankle pain, described as severe, and is localized to the left and lower extremity. Patient reports no radiation. Patient started experiencing this day(s) (1) and it has been constant. Immobilization improves symptom(s), Patient notes no other symptoms.. Patient did receive the following treatments prior to arrival, none Related Data Home Medications Medication Instructions Recorded Confirmed cyanocobalamin (vitamin B-12) 1,000 mcg IM .MONTHLY 12/03/13 04/11/23 1,000 mcg/mL oral drops (Vitamin B-12) metoprolol tartrate 100 mg tablet 100 mg PO TID 12/03/13 04/11/23 venlafaxine 75 mg tablet 75 mg PO BID 12/03/13 04/11/23 albuterol sulfate 90 mcg/actuation 2 puff inhalation QID PRN 12/09/22 04/11/23 aerosol inhaler (Ventolin HFA) amlodipine 5 mg tablet 5 mg PO DIRECTED 12/09/22 04/11/23 apixaban 5 mg tablet (Eliquis) 5 mg PO BID 12/09/22 04/11/23 fluticasone propionate 110 2 puff inhalation BID 12/09/22 04/11/23 mcg/actuation HFA aerosol inhaler (Flovent HFA) losartan 100 mg tablet 100 mg PO QAM 12/09/22 04/11/23 losartan 50 mg tablet 50 mg PO HS 12/09/22 04/11/23 omeprazole 40 mg capsule,delayed 40 mg PO BID 12/09/22 04/11/23 release potassium chloride 10 mEq 10 meq PO BID 12/09/22 04/11/23 capsule,extended release budesonide-formoterol HFA 160 2 puff inhalation BID 12/10/22 04/11/23 mcg-4.5 mcg/actuation aerosol inhaler (Symbicort) liraglutide (weight loss) 3 mg/0.5 3 mg subcut DAILY 04/11/23 04/11/23 mL (18 mg/3 mL) subcut pen injector (Saxenda) Allergies Allergy/AdvReac Type Severity Reaction Status Date / Time lisinopril Allergy Severe Angioedema Unverified 12/27/22 08:42 amoxicillin [Amoxicillin] Allergy Mild Hives Unverified 12/27/22 08:42 Sulfa (Sulfonamide Allergy Mild Skin Rash Unverified 12/27/22 08:42 Antibiotics) General Stated Complaint: Orthopedic MAGUI: 4 Review of Systems Constitutional Constitutional: Reports as per HPI, Denies fever(s), Denies headache(s) and Denies weakness ENT Ears, Nose, Mouth, and Throat: Denies headache(s) Cardiovascular Cardiovascular: Reports as per HPI Respiratory Respiratory: Reports as per HPI and Denies cough Musculoskeletal Musculoskeletal: Reports as per HPI and Denies tingling Integumentary/Breasts Skin/Breast: Reports as per HPI Neurologic Neurologic: Reports as per HPI, Denies headache(s), Denies tingling, Denies paresthesias and Denies weakness PFSH All Active Problems (Updated 04/11/23 @ 15:29 by RUTH Oh) Ankle sprain (Acute) Acute foot pain (Acute) Generalized abdominal discomfort (Acute 12/03/13) Nausea and vomiting (Acute 12/03/13) History of DVT (deep vein thrombosis) (Chronic) Chronically on Lo Hypertension (Chronic) Depression (Chronic) Small bowel obstruction (Acute 12/13/13) Medical History (Updated 04/11/23 @ 15:29 by RUTH Oh) Cardiac pacemaker in situ Chest pain neg stress echo04/2011 Endometriosis History of cardioversion F/U with cards annually ILD (interstitial lung disease) Mild intermittent asthma Ocular migraine MONIKA (obstructive sleep apnea) Parastomal hernia Pulmonary embolism x3 on continuous anticoagulation Tachy-kade syndrome Unspecified atrial fibrillation During D&C developed brief run of a-fib, tolerated general anesthesia well. Surgical History (Updated 12/27/22 @ 09:45 by Tj Reynolds MD) H/O cardiac radiofrequency ablation History of hernia repair parastomal hernia S/P colectomy Status post ileostomy Social History Smoking/Tobacco Use Status: Never Smoking risk assessment performed?: Yes Alcohol Intake: never Drug use: Never Substance use type: does not use Housing: house Do you feel safe at home: Yes Do you feel safe in your relationship?: Yes Exam Const General: cooperative, healthy appearing, uncomfortable (in wheelchair, uncomfortable with movement of hte LLE), no acute distress, well developed and well groomed Nutritional Appearance: well nourished and overweight Orientation: alert and awake Resp Effort & Inspection: normal respiratory effort, able to speak in complete sentences and no respiratory distress Cardio Rate: regular rate Rhythm: regular rhythm Skin General skin exam: no rashes or lesions noted Lesions: no lesions Rashes: no rashes Trauma: no lacerations or abrasions Neuro General: patient alert and patient awake Cognition: normal cognition Speech: speech normal Gait: antalgic (unable to bear weight on the LLE) Motor: muscle tone normal throughout Sensory Exam: no sensory deficits noted Extrem Ankle/foot/toe images: 1. Area of ecchymosis and swelling. 2+ distal pulses. Sensatio intact. No pain in posterior calf. Well healed surgical incision over Achilles. Achilles is palpated to be intact. Pain over lateraal malleolus and 5th metatarsal. No midfood pain, no calcaneal pain. No pain on plantar surface of foot. No palpable deformity. No pain over proximal fibula. ATLF pain with palpation Psych Appearance: grossly normal and well kempt Mental Status: mental status grossly normal Speech and Movement: speech and movement normal Course Vital Signs Vital signs: Vital Signs Temperature 36.8 C 04/11/23 13:47 Pulse 80 04/11/23 13:47 Respiratory Rate 18 04/11/23 13:47 Blood Pressure 124/74 04/11/23 13:47 Temperature 36.8 C 04/11/23 13:47 Temperature Source Oral 04/11/23 13:47 Pulse 80 04/11/23 13:47 Respiratory Rate 18 04/11/23 13:47 Respiratory Effort Normal, Non-Labored 04/11/23 13:51 Blood Pressure 124/74 04/11/23 13:47 Pain Level 3 04/11/23 13:47
[2023-04-11 15:39] VITALS: BP 119/76; PULSE 81; RESP 18; TEMP 36.9; O2SAT 98
--- NOTE | 2023-04-12 09:11 | NUR.NOTE ---
Nursing Note:Accessed chart for [facility] billing purposes.
== END 2023-04-11 16:07 | disposition home or self-care (01) ==
PROVIDERS: Emergency Provider Physician Assistant; PCP Internal Medicine
DX: M79.671 Pain in right foot (principal); I10 Essential (primary) hypertension; Z86.718 Personal history of other venous thrombosis and embolism; Z86.711 Personal history of pulmonary embolism; Z79.01 Long term (current) use of anticoagulants; Z95.0 Presence of cardiac pacemaker; X50.1XXA Overexertion from prolonged static or awkward postures, initial encounter; Y93.89 Activity, other specified; Y92.018 Other place in single-family (private) house as the place of occurrence of the external cause; Y99.9 Unspecified external cause status; S93.401A Sprain of unspecified ligament of right ankle, initial encounter
CPT/HCPCS: 99283; 73610; 73630

== ENCOUNTER 2023-04-18 15:56 | Emergency (ER) | payer OTHER, SELFPAY ==
[2023-04-18 15:59] VITALS: BP 130/86; PULSE 95; RESP 20; TEMP 37.1; O2SAT 97
--- NOTE | 2023-04-18 16:00 | DI.RAD_ITS ---
Exam(s) XR FOOT LT COMPLETE EXAM: XR FOOT LT COMPLETE CLINICAL HISTORY: pain and redness. TECHNIQUE: 2D digital imaging was performed. COMPARISON: CR XR FOOT LT COMPLETE from 04/11/2023 FINDINGS: 3 views Prominent soft tissue swelling of the dorsal aspect of the foot. No evidence of acute fracture or diastasis of the Lucy dennis joint. IMPRESSION: Prominent soft tissue swelling. No acute osseous findings. No radiopaque foreign body. DATA REPOSITORY: RADIATION DOSE DELIVERED:
--- NOTE | 2023-04-18 16:12 | ED.GENADUL_ITS ---
Discharge Plan Disposition Patient Disposition: Home Condition: Stable Discharge Details Clinical Impression: Foot pain, left, Cellulitis Primary Care Provider: Amairani Dozier ED Provider: Erlin Blackwell Home Meds and New Rx's Prescriptions: New clindamycin HCl 150 mg capsule 450 mg PO TID 7 Days Qty: 63 0RF clindamycin HCl 150 mg capsule 450 mg PO TID 7 Days Qty: 63 0RF Continued venlafaxine 75 MG tablet 75 mg PO BID metoprolol tartrate 100 MG tablet 100 mg PO TID Vitamin B-12 1,000 MCG/ML drops 1,000 mcg IM .MONTHLY losartan 50 mg Tablet 50 mg PO HS potassium chloride 10 mEq Capsule, Extended Release 10 meq PO BID amlodipine 5 mg tablet 5 mg PO DIRECTED Rx Instructions: 2.5mg HS, 5mg AM omeprazole 40 mg Capsule,Delayed Release(Dr/Ec) 40 mg PO BID albuterol sulfate [Ventolin HFA] 90 mcg/actuation Hfa Aerosol Inhaler 2 puff INHALATION QID PRN losartan 100 mg tablet 100 mg PO QAM fluticasone propionate [Flovent HFA] 110 mcg/actuation Hfa Aerosol Inhaler 2 puff INHALATION BID Eliquis 5 mg Tablet 5 mg PO BID budesonide-formoterol [Symbicort] 160-4.5 mcg/actuation Hfa Aerosol Inhaler 2 puff INHALATION BID Saxenda 3 mg/0.5 mL (18 mg/3 mL) Pen Injector 3 mg SUBCUT DAILY Discharge Instructions Instructions: Cellulitis (ED) Additional Instructions: if not better within a week follow up with your primary care provider if you feel more ill, have severe worsening pain or fevers return to the emergency department Medical Decision Making 62 yo female with hx of prior dvt/pe on eliquis, htn, who comes in with chief complaint of left foot pain. She inverted her ankle last week and was seen in the ED, had negative xrays and d/c'd. She has had continued pain despite using walking boot and crutches. She also has noticed redness on the top of her foot, no fever, no chills and no new trauma. She arrives stable and appears well. She does have bruising of the left foot and ankle with some mild swelling, can range her ankle and intact sensation and pulses. She has erythema that is not significantly warm to touch on the top of her foot that is 3x5cm, no fluctuance, no crepitus. Suspect cellulitis and possible gout, will repeat imaging to evaluate for missed fracture. She has no calf tenderness or diffuse swelling of the leg and is anticoagulated so doubt dvt. No findings on exam to suggest nec fasc and no significant swelling of the ankle so doubt septic joint xrays on my read negative, she is stable, will start clindamycin for possible cellulitis, advised f/u with pcp if not improving and return precautions given Differential Diagnosis Differential Diagnosis: gout, cellulitis Medical Records Medical records reviewed: Yes I reviewed the patient's medical records. Imaging Data Radiologic Study: Attestation: I personally reviewed and interpreted this imaging study as follows: Imaging: X-Ray My impression: no acute findings foot xray Radiologic Study #2: Attestation: I personally reviewed and interpreted this imaging study as follows: Radiologist's impression: no acute findings ankle xray HPI General Date/Time Provider Initiated Documentation: 04/18/23 16:05 . Limitations to Documentation: no limitations . Information obtained by: patient . History of Present Illness 62 year old F presents to the emergency department with the chief complaint of left foot pain, described as moderate, Patient started experiencing this week(s) (1) and it has been constant. No relieving factors improve symptom(s), No exacerbating factors reported . Patient notes no other symptoms.. Patient did receive the following treatments prior to arrival, none Related Data Home Medications Medication Instructions Recorded Confirmed cyanocobalamin (vitamin B-12) 1,000 mcg IM .MONTHLY 12/03/13 04/18/23 1,000 mcg/mL oral drops (Vitamin B-12) metoprolol tartrate 100 mg tablet 100 mg PO TID 12/03/13 04/18/23 venlafaxine 75 mg tablet 75 mg PO BID 12/03/13 04/18/23 albuterol sulfate 90 mcg/actuation 2 puff inhalation QID PRN 12/09/22 04/18/23 aerosol inhaler (Ventolin HFA) amlodipine 5 mg tablet 5 mg PO DIRECTED 12/09/22 04/18/23 apixaban 5 mg tablet (Eliquis) 5 mg PO BID 12/09/22 04/18/23 fluticasone propionate 110 2 puff inhalation BID 12/09/22 04/18/23 mcg/actuation HFA aerosol inhaler (Flovent HFA) losartan 100 mg tablet 100 mg PO QAM 12/09/22 04/18/23 losartan 50 mg tablet 50 mg PO HS 12/09/22 04/18/23 omeprazole 40 mg capsule,delayed 40 mg PO BID 12/09/22 04/18/23 release potassium chloride 10 mEq 10 meq PO BID 12/09/22 04/18/23 capsule,extended release budesonide-formoterol HFA 160 2 puff inhalation BID 12/10/22 04/18/23 mcg-4.5 mcg/actuation aerosol inhaler (Symbicort) liraglutide (weight loss) 3 mg/0.5 3 mg subcut DAILY 04/11/23 04/18/23 mL (18 mg/3 mL) subcut pen injector (Saxenda) clindamycin HCl 150 mg capsule 450 mg PO TID 7 days #63 caps 04/18/23 clindamycin HCl 150 mg capsule 450 mg PO TID 7 days #63 caps 04/18/23 Previous Rx's Medication Instructions Recorded clindamycin HCl 150 mg capsule 450 mg PO TID 7 days #63 caps 04/18/23 clindamycin HCl 150 mg capsule 450 mg PO TID 7 days #63 caps 04/18/23 Allergies Allergy/AdvReac Type Severity Reaction Status Date / Time lisinopril Allergy Severe Angioedema Unverified 04/18/23 16:05 amoxicillin [Amoxicillin] Allergy Mild Hives Unverified 04/18/23 16:05 Sulfa (Sulfonamide Allergy Mild Skin Rash Unverified 04/18/23 16:05 Antibiotics) General Stated Complaint: Cellulitis MAGUI: 3 Review of Systems All systems reviewed & are unremarkable except as noted in HPI and below Constitutional Constitutional: Denies chills, Denies fever(s) and Denies weakness Cardiovascular Cardiovascular: Denies chest pain and Denies dyspnea Respiratory Respiratory: Denies cough and Denies dyspnea Gastrointestinal Gastrointestinal: Denies abdominal pain, Denies nausea and Denies vomiting Neurologic Neurologic: Denies weakness PFSH All Active Problems (Updated 04/18/23 @ 17:54 by Erlin Blackwell MD) Ankle sprain (Acute) Acute foot pain (Acute) Foot pain, left (Acute) Cellulitis (Acute) Generalized abdominal discomfort (Acute 12/03/13) Nausea and vomiting (Acute 12/03/13) History of DVT (deep vein thrombosis) (Chronic) Chronically on Lo Hypertension (Chronic) Depression (Chronic) Small bowel obstruction (Acute 12/13/13) Medical History (Updated 04/18/23 @ 17:54 by Erlin Blackwell MD) Cardiac pacemaker in situ Chest pain neg stress echo04/2011 Endometriosis History of cardioversion F/U with cards annually ILD (interstitial lung disease) Mild intermittent asthma Ocular migraine MONIKA (obstructive sleep apnea) Parastomal hernia Pulmonary embolism x3 on continuous anticoagulation Tachy-kade syndrome Unspecified atrial fibrillation During D&C developed brief run of a-fib, tolerated general anesthesia well. Surgical History (Updated 12/27/22 @ 09:45 by Tj Reynolds MD) H/O cardiac radiofrequency ablation History of hernia repair parastomal hernia S/P colectomy Status post ileostomy Social History Smoking/Tobacco Use Status: Never Smoking risk assessment performed?: Yes Alcohol Intake: never Drug use: Never Substance use type: does not use Housing: house Do you feel safe at home: Yes Do you feel safe in your relationship?: Yes Exam Const General: no acute distress Orientation: alert HENMT Head: normal to inspection Ears: external ears normal General nose exam: external nose normal Mouth: moist mucous membranes Eyes General: appearance normal, both eyes and all related structures Neck Neck: normal visual inspection Resp Effort & Inspection: normal respiratory effort and able to speak in complete sentences Cardio Rate: regular rate Skin General skin exam: elasticity normal Neuro General: patient alert and patient oriented x3 Extrem General: full ROM and capillary refill normal Psych Mental Status: mental status grossly normal Course Vital Signs Vital signs: Vital Signs Temperature 37.1 C 04/18/23 15:59 Pulse 95 H 04/18/23 15:59 Respiratory Rate 04/18/23 15:59 Blood Pressure 130/86 04/18/23 15:59 Pulse Oximetry 97 04/18/23 15:59 Temperature 37.1 C 04/18/23 15:59 Temperature Source Oral 04/18/23 15:59 Pulse 95 H 04/18/23 15:59 Respiratory Rate 04/18/23 15:59 Blood Pressure 130/86 04/18/23 15:59 Blood Pressure Position Sitting 04/18/23 15:59 Pulse Oximetry 97 04/18/23 15:59 Oxygen Delivery Method Room Air 04/18/23 15:59 Oxygen Flow Rate 0 04/18/23 15:59 Pain Level 10 04/18/23 15:59
--- NOTE | 2023-04-18 16:15 | DI.RAD_ITS ---
Exam(s) XR ANKLE LT COMPLETE EXAM: XR ANKLE LT COMPLETE CLINICAL HISTORY: pain. TECHNIQUE: 2D digital imaging was performed. COMPARISON: CR XR ANKLE LT COMPLETE from 04/11/2023 FINDINGS: 3 views Soft tissue swelling but no evidence of fracture nor widening of the ankle mortise. Talar dome unrem arkable. Bone density normal. No osseous lesions. No tarsal coalition evident. IMPRESSION: Soft tissue swelling but no acute osseous findings DATA REPOSITORY: RADIATION DOSE DELIVERED:
[2023-04-18] MEDS: Lidocaine 5% Patch 1 PATCH TP (17:07)
== END 2023-04-18 18:12 | disposition home or self-care (01) ==
PROVIDERS: Emergency Provider Emergency Medicine; PCP Internal Medicine
DX: M25.571 Pain in right ankle and joints of right foot (principal); L03.115 Cellulitis of right lower limb; I10 Essential (primary) hypertension; Z86.718 Personal history of other venous thrombosis and embolism; Z79.01 Long term (current) use of anticoagulants
CPT/HCPCS: 99285; 73610; 73630; 99283